=== PATIENT | female | born 1980 | race African-American/Black ===

== ENCOUNTER 2019-01-31 11:31 | Outpatient (CLI) | payer BC ==
[2019-01-31 15:13] LABS: #Basophils 0.1 thou/uL (0.0-0.2); #Eosinphils 0.1 thou/uL (0.0-0.7); #Lymphocytes 2.5 thou/uL (1.20-3.40); #Monocytes 0.3 thou/uL (0.11-0.59); #Neutrophils 2.5 thou/uL (1.40-6.50); %Basophils 1.6 % (0.0-1.0); %Eosinophils 0.9 % (0.0-10.0); %Lymphocytes 46.4 % (21.0-51.0); %Monocytes 5.4 % (0.0-10.0); %Neutrophils 45.7 % (42.0-75.0); Hemoglobin 12.9 g/dL (12.0-16.0); Mean Corpuscular Hemoglobin 30.7 pg (27.0-31.0); Mean Corpuscular Volume 93.1 fL (78.0-98.0); Mean Platelet Volume 7.3 fL (7.4-10.4); Platelet Count 230 thou/uL (130-400); RBC Distribution Width 11.6 % (11.5-14.5); White Blood Cell (WBC) Count 5.5 thou/uL (4.8-10.8)
[2019-01-31 15:21] LABS: BHCG - Serum Negative (NEGATIVE); Pregs Control Background? CLEAR/WHITE (CLR/WHITE); Pregs Control Bar Appear? YES (CONTROL BAR)
--- NOTE | 2019-01-31 18:51 | HP ---
HISTORY OF PRESENT ILLNESS: Meagan Alexis is a 39-year-old black female, finishing her master's in [employer], interviewing for a job today. She has severe hemorrhoids and was seen by Dr. Betancur in the past. Today, anoscopy reveals internal and external hemorrhoids. She reports bleeding occasionally. Dr. Betancur recommended hydrocortisone suppositories. Plan is for hemorrhoidectomy as an outpatient. She will undergo a bowel prep and we will plan this under general anesthesia and local. MEDICATIONS: None. PAST MEDICAL HISTORY: Chronic nipple retraction and hemorrhoids. PAST SURGICAL HISTORY: Breast biopsy, benign. ALLERGIES: NONE. SOCIAL HISTORY: Tobacco, none. Alcohol, none. The patient is single. PHYSICAL EXAMINATION: VITAL SIGNS: She is 160 pounds, 5 feet 10 inches, and 23 BMI. Blood pressure 114/71, heart rate 76, and temperature 99.3 degrees. HEAD, EARS, EYES, NOSE AND THROAT: Unremarkable. LUNGS: Clear to auscultation. CARDIAC: Regular rate and rhythm without murmur or gallop. ABDOMEN: Soft and nontender. RECTAL: Good rectal tone. No rectal masses. Perianal area, external hemorrhoids. Anoscopy reveals internal hemorrhoids as well as external hemorrhoidal tags. No evidence of anal fissure. No history of anal fissure. ASSESSMENT: Internal and external hemorrhoids. PLAN: Excision of hemorrhoidal complexes and external tag. She understands the risks and benefits, and consents. Job ID: [id number]
== END 2019-01-31 11:32 | disposition home or self-care (01) ==
LOC: LABBT 11:31
PROVIDERS: ATTEND Specialist
DX: Z01.812 Encounter for preprocedural laboratory examination (principal); K64.8 Other hemorrhoids; K64.4 Residual hemorrhoidal skin tags
CPT/HCPCS: 84703; 85025

== ENCOUNTER 2019-02-01 08:08 | Day surgery (SDC) | payer BC ==
[2019-01-31 15:09] VITALS: BMI 22.9
[2019-02-01] MEDS ORDERED: Ketorolac Tromethamine 30 MG/ML VIAL ONE (08:52)
[2019-02-01] MEDS ORDERED: MEROPENEM 1 GM/50 ML 1 GM in Premix Bag 1 BAG IVPB SCH (09:00)
[2019-02-01] MEDS ORDERED: Ketorolac Tromethamine 30 MG/ML VIAL IVP SCH (09:00)
[2019-02-01] MEDS ORDERED: Acetaminophen 1,000 MG in Premix Bag 1 BAG IVPB SCH (09:00)
[2019-02-01] MEDS ORDERED: Lidocaine 2% Jelly 5 ML TUBE ONE (09:40)
[2019-02-01] MEDS ORDERED: Lidocaine 2% PF 5 ML VIAL ONE ×2 (09:40→09:41)
[2019-02-01] MEDS ORDERED: Bupivacaine HCl 0.5%/Epinephrine 1:200,000/PF 30 ml Vial ONE (09:40)
[2019-02-01] MEDS ORDERED: Fentanyl 100 MCG/2 ML VIAL ONE (09:43)
[2019-02-01] MEDS ORDERED: Midazolam HCl 2 mg/2 ml Vial ONE (09:43)
[2019-02-01] MEDS ORDERED: Promethazine HCl 25 MG/ML VIAL ONE (11:45)
--- NOTE | 2019-02-01 12:12 | OP ---
DATE OF PROCEDURE: 02/01/2019 PREOPERATIVE DIAGNOSES: Prolapsing bleeding and painful hemorrhoids. POSTOPERATIVE DIAGNOSES: Prolapsing bleeding and painful hemorrhoids. PROCEDURE PERFORMED: Two column hemorrhoidectomy, internal and external. ANESTHESIA: General and local 0.5% Marcaine with epinephrine 30 mL mixed with 2% Xylocaine, 20 mL local mixture used. DESCRIPTION OF PROCEDURE: In the dorsal lithotomy position under general anesthesia, perianal area was prepared with Betadine and draped in routine fashion. The patient had large hemorrhoids prolapsing. Under anesthesia, I examined. These were certainly much worse than I saw in the office yesterday. Hill-Gutierrez retractor was inserted and a left and right internal and external hemorrhoidal complex excision was performed by placing apical sutures of 3-0 chromic, making elliptical incisions over the external hemorrhoids and excised them using the hemorrhoidal ligature. The mucosa skin was approximated with continuous locking suture of 3-0 chromic. Once these 2 large hemorrhoidal complexes were excised, there were no other hemorrhoids. There was a good cosmetic result and no redundancy perianal. Anus was adequately patent without narrowing. Good hemostasis noted. Surgicel rolled with Xylocaine jelly and epinephrine placed in the lower rectum. The patient tolerated the procedure well. Job ID: [id number]
[2019-02-01] MEDS ORDERED: Dexamethasone 20 MG/5 ML VIAL ONE (13:04)
[2019-02-01] MEDS ORDERED: Lidocaine 1% PF 5 ML VIAL ONE (13:04)
[2019-02-01] MEDS ORDERED: Rocuronium Bromide 10 MG/ML (10ML VIAL) ONE (13:04)
[2019-02-01] MEDS ORDERED: Glycopyrrolate 0.2 MG/ML 5 ML SYRINGE ONE (13:04)
[2019-02-01] MEDS ORDERED: PROPOFOL 200 MG/20 ML VIAL ONE (13:04)
[2019-02-01] MEDS ORDERED: Ondansetron PF 4 MG/2 ML Vial ONE (13:04)
[2019-02-01] MEDS ORDERED: ePHEDrine 50 MG/ML VIAL ONE (13:04)
== END 2019-02-01 15:50 | disposition home or self-care (01) ==
LOC: SDC 08:08
PROVIDERS: ATTEND Specialist
PROC: 06BY3ZC Excision of Hemorrhoidal Plexus, Percutaneous Approach (ICD-10-PCS; principal; 2019-02-01)
DX: K64.8 Other hemorrhoids (principal); K64.4 Residual hemorrhoidal skin tags
CPT/HCPCS: J0131; J0670; J1100; J1885; J2001; J2185; J2250; J2405; J2550; J2704; J3010; J3490